=== PATIENT | female | born 1990 | race Caucasian/White ===

== ENCOUNTER 2017-07-01 19:59 | Emergency (ER) | payer OTHER ==
[~2017-07-01] VITALS: Ht 162.6 cm; Wt 80.7 kg
[~2017-07-01 19:59] MED LIST: CLEOCIN300 MG PO; CLINDAMYCIN HC300 MG PO; FLEXERIL10 MG PO; LAMICTAL25 MG PO; MOTRIN600 MG PO; NAPROSYN500 MG PO; PREDNISONE20 MG PO; ROBITUSSIN DM118 ML PO; ULTRAM50 MG PO; VENTOLIN HFA18 GM IH
[2017-07-01 21:14] LABS: ADD MIUA? YES; BILIRUBIN SMALL; BLOOD LARGE; GLUCOSE (STRIP) NEGATIVE; KETONES 5; LEUKOCYTES NEGATIVE; NITRITE NEGATIVE; PROTEIN (STRIP) 100; SPECIFIC GRAVITY 1.044 (1.000-1.030)
[2017-07-01 21:21] LABS: HEMATOCRIT 41.3 % (36.0-46.0); MCH 30.7 PG (29.0-34.0); MCHC 33.4 G/DL (30.0-36.0); MEAN PLAT.VOLUME 10.9 uM^3 (9.5-12.4); PLATELET COUNT 171 K/uL (156-360); RBC DIS.WIDTH-CV 13.1 % (11.8-14.6); RBC DIS.WIDTH-SD 44.5 % (39-53); RED BLOOD COUNT 4.49 M/uL (3.80-5.20)
[2017-07-01 21:21] LABS: BACTERIA RARE /HPF; CALCIUM OXALATE CRYSTALS 4+ /HPF; EPITHELIAL CELLS 1+ /HPF; MUCUS 4+ /LPF; RED BLOOD CELLS 0-5 /HPF (0-5); UCUL ADDED? NO; WHITE BLOOD CELLS 0-5 /HPF (0-5)
[2017-07-01 21:22] LABS: COLOR DK YELLOW ((YELLOW))
[2017-07-01 21:23] LABS: CHLORIDE 109 mEq/L (99-109); POTASSIUM 3.6 mEq/L (3.7-5.4); SODIUM 138 mEq/L (136-147)
[2017-07-01 21:25] LABS: GLUCOSE 83 mg/dL (70-99)
[2017-07-01 21:26] LABS: ANION GAP 8 MEQ/L (2-14)
[2017-07-01 21:27] LABS: TOTAL BILIRUBIN 0.3 mg/dL (0.0-1.0)
[2017-07-01 21:28] LABS: ALKALINE PHOSPHATASE 83 IU/L (3-129)
[2017-07-01 21:29] LABS: GFR ESTIMATE (CALCULATED) > 59 mL/min/
[2017-07-01 21:30] LABS: UREA NITROGEN (BUN) 11 mg/dL (9-23)
[2017-07-01 21:37] LABS: QUANTITATIVE HCG < 4.0 MIU/ML
[2017-07-01] MEDS ORDERED: INDERAL20 MG PO (22:54)
[2017-07-01] MEDS ORDERED: TRAZODONE HCL50 MG PO (22:55)
[2017-07-01] MEDS ORDERED: PERCOCET 5/31 TABLET PO (23:03)
[2017-07-01] MEDS ORDERED: ZOFRAN ODT4 MG PO (23:03)
[2017-07-01 23:34] VITALS: BP 129/80
== END 2017-07-01 23:35 | disposition home or self-care (01) ==
LOC: EME 19:59
DX: G89.29 Other chronic pain (principal); R10.2 Pelvic and perineal pain; R11.0 Nausea; F17.200 Nicotine dependence, unspecified, uncomplicated
CPT/HCPCS: 80053; 81003; 84702; 85027; 99281; 99284; J3010

== ENCOUNTER 2017-07-14 18:54 | Emergency (ER) | payer OTHER ==
[~2017-07-14] VITALS: Ht 162.6 cm; Wt 79.5 kg
[~2017-07-14 18:54] MED LIST changes: +INDERAL20 MG PO; +PERCOCET 5/31 TABLET PO; +TRAZODONE HCL50 MG PO; +ZOFRAN ODT4 MG PO
[2017-07-14 19:51] LABS: HEMATOCRIT 40.8 % (36.0-46.0); MCH 30.7 PG (29.0-34.0); MCHC 33.8 G/DL (30.0-36.0); MCV 90.9 FL (83-99); MEAN PLAT.VOLUME 11.6 uM^3 (9.5-12.4); PLATELET COUNT 153 K/uL (156-360); RBC DIS.WIDTH-CV 12.8 % (11.8-14.6); RBC DIS.WIDTH-SD 42.5 % (39-53); RED BLOOD COUNT 4.49 M/uL (3.80-5.20)
[2017-07-14 20:06] LABS: CHLORIDE 113 mEq/L (99-109); POTASSIUM 3.9 mEq/L (3.7-5.4); SODIUM 140 mEq/L (136-147)
[2017-07-14 20:08] LABS: GLUCOSE 85 mg/dL (70-99)
[2017-07-14 20:09] LABS: ANION GAP 6 MEQ/L (2-14)
[2017-07-14 20:11] LABS: GFR ESTIMATE (CALCULATED) > 59 mL/min/
[2017-07-14 20:12] LABS: TROP-I INTERPRETATION NEGATIVE; TROPONIN-I < 0.01 ng/mL (0.0-0.30); UREA NITROGEN (BUN) 8 mg/dL (9-23)
[2017-07-14 20:42] LABS: ADD MIUA? YES; BILIRUBIN NEGATIVE; BLOOD NEGATIVE; COLOR YELLOW ((YELLOW)); GLUCOSE (STRIP) NEGATIVE; KETONES NEGATIVE; LEUKOCYTES NEGATIVE; NITRITE NEGATIVE; PROTEIN (STRIP) 30; SPECIFIC GRAVITY 1.025 (1.000-1.030)
[2017-07-14 20:44] LABS: QUANTITATIVE HCG < 4.0 MIU/ML
[2017-07-14] MEDS ORDERED: LAMICTAL25 MG PO (20:45)
[2017-07-14 20:54] LABS: BACTERIA RARE /HPF; EPITHELIAL CELLS 1+ /HPF; MUCUS TRACE /LPF; RED BLOOD CELLS 0-5 /HPF (0-5); UCUL ADDED? NO; WHITE BLOOD CELLS 0-5 /HPF (0-5)
[2017-07-14 21:44] VITALS: BP 117/74
[2017-07-15 12:30] LABS: CHLAMYDIA TRACHOMATIS NEGATIVE; NEISSERIA GONORRHOEAE NEGATIVE
== END 2017-07-14 21:58 | disposition home or self-care (01) ==
LOC: EME 18:54
PROVIDERS: Emergency Medicine
DX: N80.0 Endometriosis of uterus (principal); R07.9 Chest pain, unspecified; F17.200 Nicotine dependence, unspecified, uncomplicated; Z88.0 Allergy status to penicillin; Z91.040 Latex allergy status
CPT/HCPCS: 71020; 80048; 81003; 84484; 84702; 85027; 87491; 87591; 93005; 99281; 99284; J1885

== ENCOUNTER 2017-10-20 22:29 | Emergency (ER) | payer OTHER ==
[~2017-10-20] VITALS: Ht 162.6 cm; Wt 76.7 kg
[2017-10-20 22:33] VITALS: BP 114/64
== END 2017-10-20 23:17 | disposition left against medical advice (07) ==
LOC: EME 22:29
DX: R21 Rash and other nonspecific skin eruption (principal); Z53.21 Procedure and treatment not carried out due to patient leaving prior to being seen by health care provider